=== PATIENT | male | born 2000 | race Caucasian/White ===

== ENCOUNTER 2025-04-06 14:10 | Emergency (ER) | payer BC ==
[~2025-04-06] VITALS: Ht 182.9 cm; Wt 100.6 kg
[2025-04-06 14:20] VITALS: BP 153/73
== END 2025-04-06 15:00 | disposition home or self-care (01) ==
LOC: ED 14:10
DX: S61.412A Laceration without foreign body of left hand, initial encounter (principal); W26.8XXA Contact with other sharp object(s), not elsewhere classified, initial encounter
CPT/HCPCS: 12002; 99282